=== PATIENT | female | born 1995 | race African-American/Black ===

== ENCOUNTER 2017-08-12 18:27 | Emergency (ER) | payer OTHER ==
[2017-08-12] MEDS ORDERED: Acetaminophen 500 MG TAB ONE (18:57)
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
== END 2017-08-12 20:17 | disposition home or self-care (01) ==
LOC: ERS 18:27
DX: M79.1 Myalgia (principal); V43.52XA Car driver injured in collision with other type car in traffic accident, initial encounter
CPT/HCPCS: 72040